=== PATIENT | female | born 1970 | race Caucasian/White ===

== ENCOUNTER 2016-10-07 07:50 | Emergency (ER) | payer SELFPAY ==
[~2016-10-07] VITALS: Ht 165.1 cm; Wt 77.0 kg
[2016-10-07 07:50] VITALS: Ht 165.1 cm; Wt 77.0 kg
[2016-10-07] MEDS ORDERED: ONDANSETRON 4mg/2ml INJECTION IV ONE (08:15)
[2016-10-07] MEDS ORDERED: KETOROLAC 30mg/ml INJECTION IV ONE (08:15)
[2016-10-07] MEDS ORDERED: HYDROMORPHONE 2mg/ml INJECTION IV ONE (08:30)
[2016-10-07] MEDS ORDERED: CEFTRIAXONE I.V. (ER USE ONLY) 1 G in NORMAL SALINE 100 ML IV ONE (08:30)
[2016-10-07 08:45] LABS: HCT - HEMATOCRIT 39.9 % (36-46); HGB - HEMOGLOBIN 13.2 GM/DL (12-16); MEAN CORPUSCULAR HGB 29.8 UUG (26-34); MEAN CORPUSCULAR HGB CONC(MCHC 33.1 GM/DL (31-37); MEAN CORPUSCULAR VOLUME 90.1 UM3 (80-100); RED BLOOD COUNT 4.43 M/MM3 (4.00-5.20); WBC - WHITE BLOOD COUNT 7.8 T/MM3 (4.5-11.0)
[2016-10-07 08:57] LABS: ALBUMIN 4.5 G/DL (3.5-5.0); ALBUMIN/GLOBULIN RATIO 1.5 RATIO (1.1-2.2); ALKALINE PHOSPHATASE 80 U/L (38-126); ALT (SGPT) 25 U/L (9-52); ANION GAP 15 MEQ/L (5-15); AST (SGOT) 20 U/L (14-36); BUN/CREATININE RATIO 9 RATIO (6-26); CALCIUM 9.3 MG/DL (8.4-10.2); CHLORIDE 105 MEQ/L (98-107); CO2 - CARBON DIOXIDE 23 MEQ/L (22-30); CREATININE 0.7 MG/DL (0.7-1.2); GLOMERULAR FILTRATION RATE 91; GLUCOSE 142 MG/DL (65-110); POTASSIUM 3.8 MEQ/L (3.6-5); SODIUM 143 MEQ/L (134-144); TOTAL PROTEIN 7.6 G/DL (6.3-8.2)
[2016-10-07 09:03] LABS: BAND NEUTROPHILS # 0.5 T/MM3; LYMPHOCYTES # (MANUAL) 0.5 T/MM3 (1-4.8); NEUTROPHILS #(MANUAL)-ABSOLUTE 6.8 T/MM3 (1.8-7.7); TOTAL CELLS COUNTED 100 %
[2016-10-07] MEDS ORDERED: NO ROUTINE MEDS (09:14)
[2016-10-07] MEDS ORDERED: IBUP-1724 PO (09:14)
--- NOTE | 2016-10-07 09:39 | ERPDOC ---
Departure Disposition Decision Date: October 07, 2016 Disposition Decision Time: 09:42 Disposition: 01 DISCHARGED HOME, SELF-CARE Impression Impression Impression: Primary Impression: Abscessed tooth Additional Impressions: Vomiting Dehydration Severity: Moderate Condition: Improved Seen By: Physician only Patient Instructions: Toothache (ED) Problems/Meds/Labs Reviewed?: Yes Medications reviewed and manag: Yes Additional Instructions: Clindamycin 300 mg, 4 times daily for 10 days. [place] one tablet every 4 hours as needed for pain. Zofran 1 tablet every 6 hours as needed for nausea. Follow-up with her dentist. Follow up care ordered?: Yes Mental Status: Alert, Oriented Scripts Clindamycin HCl (Clindamycin HCl) 300 Mg Capsule 300 MG PO QID, #40 CAP 0 Refills Prov: KAMRAN PLATA MD 10/07/16 Ondansetron HCl (Zofran) 4 Mg Tablet 4 MG PO Q6H for NAUSEA, #30 TAB Prov: KAMRAN PLATA MD 10/07/16 Hydrocodone/Acetaminophen ([place] 5-325 Tablet) 5-325 Tablet 1 TAB PO QID Y for PAIN, #10 TAB Prov: KAMRAN PLATA MD 10/07/16 HPI General Chief Complaint: Toothache Stated Complaint: TOOTH PAIN Time Seen by Provider: 08:09 HPI Dental Initial Comments 45-year-old female presents with dental pain. Patient has left lower jaw pain radiating into the left side of the neck. No difficulty breathing or swallowing. She has not had any fevers, but did have some chills last night. She is known about the tooth for some time, has been able to ignore it, but in the last few days it has gotten much worse. She rates the pain as 10 out of 10. As I entered the room she is throwing up into a trashcan. This was true bilious vomit, not the usual spittle and froth which people try to throw up. Allergies: Coded Allergies: aspirin (Verified Allergy, Mild, 10/07/16) codeine (Verified Allergy, Mild, 10/07/16) Past History Past Medical History Pt denies signifigant PMH Surgical History Denies Surgeries Family History Family PMH: FOUND: hypertension Social History Smoking Status: Never smoker Substance Use Type: does not use Record Review Pertinent history updated: Yes Review of Systems ENMT Teeth: chipped/cracked tooth, see HPI Pulmonary Respiratory: see HPI All other Systems All Other Systems: Reviewed and Negative Exam General General Nourishment: well nourished, well developed, appears stated age General Body Habitus: well groomed Vital Signs: Temperature: 99.1, Source: Oral, Heart Rate: 94, Respiratory Rate : 15, BP: 123/71, Pulse Oximetry: 98 Height (Feet): 5 Height (Inches): 5.00 Comments Patient is actively vomiting as I walk in the room, and in obvious pain. [facility] Comments Patient has 3 back row teeth, which are in the process of breaking down. Her gum is swollen red warm to the touch. And very tender. Cervical lymph nodes are palpable on left side anterior chain 1 - Cracked and chipped teeth with red swollen gums 2 - Neurologic RN Documented GCS Eye Opening: Verbal: Motor: Total: Differential Diagnoses Considering: Gingival Abscess, Peritonsillar Abscess, Retropharyngeal Abscess, Caries, Dry Socket, Retained Foreign Body, Gingivitis, Impacted Tooth, Tooth Avulsion/Extrusion, Tooth Fracture Progress Results/Orders Orders Procedure Category Date Status Time Iv Lock (Ed Only) EDM 10/07/16 Transmitted 08:15 Cbc W/Auto LAB 10/07/16 Complete Diff-Reflex Manual Cmp - Comprehensive LAB 10/07/16 Complete Metabolic Ondansetron Inj PHA 10/07/16 Complete (Zofran) 08:15 Ketorolac (Toradol) PHA 10/07/16 Complete 08:15 Hydromorphone PHA 10/07/16 Complete (Dilaudid) 08:30 Ceftriaxone I.V. (Er PHA 10/07/16 Complete Use Only) (Rocephin 08:30 Lab Results Laboratory Tests Test 10/07/16 08:31 White Blood Count 7.8T/MM3 Red Blood Count 4.43M/MM3 Hemoglobin 13.2GM/DL Hematocrit 39.9% Mean Corpuscular Volume 90.1UM3 Mean Corpuscular Hemoglobin 29.8UUG Mean Corpuscular Hemoglobin Concent 33.1GM/DL RDW Standard Deviation 43.9FL Platelet Count 279T/MM3 Mean Platelet Volume 10.0UM3 Immature Granulocyte % (Auto) % Neutrophils (%) (Auto) % Lymphocytes (%) (Auto) % Monocytes (%) (Auto) % Eosinophils (%) (Auto) % Basophils (%) (Auto) % Absolute Immature Granulocyte (auto T/MM3 Absolute Neutrophils (auto) T/MM3 Absolute Lymphocytes (auto) T/MM3 Absolute Monocytes (auto) T/MM3 Absolute Eosinophils (auto) T/MM3 Absolute Basophils (auto) T/MM3 Neutrophils % (Manual) 87.0% Band Neutrophils % 6.0% Lymphocytes % (Manual) 7.0% Absolute Neutrophils (Manual) 6.8T/MM3 Band Neutrophils # 0.5T/MM3 Lymphocytes # (Manual) 0.5T/MM3 Red Cell Morphology Comment Normal Turbidity < 20 Sodium Level 143MEQ/L Potassium Level 3.8MEQ/L Chloride Level 105MEQ/L Carbon Dioxide Level 23MEQ/L Anion Gap 15MEQ/L Blood Urea Nitrogen 6.0MG/DL Creatinine 0.7MG/DL Glomerular Filtration Rate Calc 91 BUN/Creatinine Ratio 9RATIO Glucose Level 142MG/DL Calculated Osmolality 275MOSM/KG Calcium Level 9.3MG/DL Total Bilirubin 0.90MG/DL Icterus Index < 2 Aspartate Amino Transf (AST/SGOT) 20U/L Alanine Aminotransferase (ALT/SGPT) 25U/L Alkaline Phosphatase 80U/L Total Protein 7.6G/DL Albumin 4.5G/DL Globulin 3.1G/DL Albumin/Globulin Ratio 1.5RATIO Chemistry Specimen Hemolysis < 15 Medications Current ED Medications Ondansetron HCl (Zofran) 4 mg O ONCE IV Last administered on 10/07/16 08:39; Start 10/07/16 at 08:15; Stop 10/07/16 at 08:18; Status DC Ketorolac Tromethamine (Toradol) 30 mg O ONCE IV Last administered on 08:39; Start 10/07/16 at 08:15; Stop 10/07/16 at 08:18; Status DC Hydromorphone HCl 0.5 mg 0.5 mg O ONCE IV Last administered on 10/07/16 08:39 ; Start 10/07/16 at 08:30; Stop 10/07/16 at 08:31; Status DC Ceftriaxone Sodium/Sodium Chloride (Rocephin/NS) 100 ml @ 100 mls/hr O ONCE IV Last administered on 10/07/16 08:38; Start 5/14/17 at 08:30; Stop at 09:29; Status DC Progress Progress Patient given IV normal saline 1 L, Zofran 4 mg IV, Toradol 30 mg IV, Dilaudid 0.5 mg IV. Even Rocephin 1 g IV. She'll be discharged on clindamycin 300 mg 4 times a day. I did give her [place] 5 mg #10 tabs. She will follow up with dentist and continue with the antibiotics unless instructed otherwise by the dentist. She was also given a prescription for Zofran for nausea. KAMRAN PLATA MD October 07, 2016 09:39
[2016-10-07] MEDS ORDERED: HYDR-4246 PO (09:45)
[2016-10-07] MEDS ORDERED: ONDA4TAB4 PO (09:45)
[2016-10-07] MEDS ORDERED: CLIN300C86 PO (09:45)
[2016-10-07 09:48] VITALS: BP 123/71; PULSE 94; RESP 15; TEMP 99.1; O2SAT 98
== END 2016-10-07 09:48 | disposition home or self-care (01) ==
LOC: ED 07:50
DX: K04.7 Periapical abscess without sinus (principal); E86.0 Dehydration; R11.2 Nausea with vomiting, unspecified
CPT/HCPCS: 80053; 85025